=== PATIENT | male | born 1980 | race Caucasian/White ===

== ENCOUNTER 2019-06-02 12:26 | Emergency (ER) | payer SELFPAY ==
[~2019-06-02] VITALS: Ht 172.7 cm; Wt 81.6 kg
[~2019-06-02 12:26] MED LIST: NAPROSYN500 MG PO; ULTRAM50 MG PO
[2019-06-02 13:00] LABS: BILIRUBIN NEGATIVE (NEGATIVE); BLOOD 3+ (NEGATIVE); CLARITY CLEAR (CLEAR); COLOR YELLOW (YELLOW); GLUCOSE NEGATIVE (NEGATIVE); KETONE TRACE (NEGATIVE); LEUKO ESTERASE NEGATIVE (NEGATIVE); NITRITE NEGATIVE (NEGATIVE); PH 5.5 (5.0-9.0); SPECIFIC GRAVITY 1.025 (1.005-1.030); UROBILINOGEN 0.2 E.U./dl (0.2-1.0)
[2019-06-02 13:16] LABS: RBC TNTC rbc/hpf (0-2)
[2019-06-02 13:26] LABS: BASO # 0.1 10*3/uL (0.0-0.1); BASO % 0.4 % (0.0-1.0); EOS # 0.1 10*3/uL (0.0-0.4); HEMATOCRIT 47.5 % (42.0-52.0); HEMOGLOBIN 15.9 g/dl (14.0-18.0); LYMPH # 1.4 10*3/uL (1.3-4.4); LYMPH % 9.8 % (27.0-41.0); MEAN CORPUSCULAR HGB 30.1 pg (27.0-31.0); MEAN CORPUSCULAR HGB CONC 33.5 g/dl (33.0-37.0); MEAN PLATELET VOLUME 9.7 fl (9.6-12.3); MONO # 1.3 10*3/uL (0.1-1.0); MONO % 9.2 % (3.0-9.0); NEUT # 10.9 10*3/uL (2.3-7.9); NEUT % 79.2 % (47.0-73.0); PLATELET COUNT AUTOMATED 371 10*3/uL (130-400); RED BLOOD COUNT 5.28 10*6/uL (4.50-5.90); RED CELL DISTRI WIDTH 12.7 % (0-14.5); WHITE BLOOD COUNT 13.8 10*3/uL (4.8-10.8)
[2019-06-02 13:41] LABS: ALKALINE PHOSPHATASE 90 U/L (45-117); BUN 14 mg/dl (7-24); CHLORIDE 105 mmol/L (98-107); CREATININE 1.14 mg/dL (0.70-1.30); POTASSIUM 3.8 mmol/L (3.5-5.1); SGOT/AST 22 IU/L (3-35); SGPT/ALT 29 U/L (12-78); SODIUM 138 mmol/L (136-145); TOTAL PROTEIN 7.6 gm/dL (6.4-8.2)
[2019-06-02] MEDS ORDERED: REGLAN10 M1 PO (15:11)
[2019-06-02] MEDS ORDERED: TYLENOL325 M1 PO (15:11)
[2019-06-02] MEDS ORDERED: FLOMAX0.4 MG PO (15:11)
[2019-06-02] MEDS ORDERED: NAPROSYN500 MG PO (15:11)
== END 2019-06-02 15:40 | disposition home or self-care (01) ==
LOC: ED 12:26
PROVIDERS: Emergency Medicine
DX: N13.2 Hydronephrosis with renal and ureteral calculous obstruction (principal)